=== PATIENT | female | born 1995 | race Caucasian/White ===

== ENCOUNTER 2019-09-30 22:52 | Emergency (ER) | payer OTHER, MEDICAID ==
[~2019-09-30] VITALS: Ht 154.9 cm; Wt 65.8 kg
[2019-09-30 23:39] LABS: URINE BILIRUBIN NEGATIVE (Negative); URINE BLOOD NEGATIVE (Negative); URINE CLARITY CLEAR; URINE COLOR YELLOW; URINE GLUCOSE-RANDOM NEGATIVE (Negative); URINE KETONES NEGATIVE (Negative); URINE LEUKOCYTES-REFLEX 1+ (Negative); URINE NITRITE-REFLEX NEGATIVE (Negative); URINE PROTEIN 1+ (Negative); URINE SPECIFIC GRAVITY >= 1.030 (1.005-1.030); URINE UROBILINOGEN 0.2 E.U./dl (0.2-1.0)
[2019-10-01 00:04] LABS: CASTS None Seen /LPF (None Seen); MUCUS 0-3 Light strn/LPF (None Seen); SQUAMOUS >10 Many /LPF (0-3); URINE WBC-REFLEX >25 Many /HPF (0-5)
[2019-10-01 00:05] LABS: CRYSTALS None Seen /LPF (None Seen); URINE RBC 3-10 Few /HPF (0-2)
[2019-10-01] MEDS ORDERED: MACROBID 100 M100 M1 PO (00:41)
[2019-10-01 00:48] VITALS: BP 126/78
== END 2019-10-01 00:48 | disposition home or self-care (01) ==
LOC: M.ERS 22:52
PROVIDERS: Family Medicine
DX: N39.0 Urinary tract infection, site not specified (principal)

== ENCOUNTER 2020-01-14 21:41 | Emergency (ER) | payer OTHER, MEDICAID ==
[~2020-01-14] VITALS: Ht 157.5 cm; Wt 66.7 kg
[~2020-01-14 21:41] MED LIST: MACROBID 100 M100 M1 PO
[2020-01-14 22:23] LABS: ABSOLUTE EOSINOPHILS 0.2 thou/uL (0.0-0.7); ABSOLUTE LYMPHOCYTES 2.5 thou/uL (0.8-5.3); ABSOLUTE MONOCYTES 0.5 thou/uL (0.0-1.2); ABSOLUTE NEUTROPHILS 1.7 thou/uL (1.6-8.1); BASOPHILS 0.6 %; EOSINOPHILS 3.3 %; HEMATOCRIT 37.5 % (37.0-47.0); HEMOGLOBIN 12.6 gm/dL (12.0-15.0); LYMPHOCYTES 51.2 %; MCH 30.7 pg (26.0-34.0); MCHC 33.6 g/dL (28.0-37.0); MCV 91.4 fL (80.0-100.0); MONOCYTES 9.5 %; MPV 9.1 fl. (7.2-11.1); NUCLEATED RBCS 0 /100WBC; PLATELET COUNT* 218 thou/uL (150-400); POLYS 35.4 %; WBC 4.8 thou/uL (4.0-11.0)
[2020-01-14 22:31] LABS: CALCIUM 8.7 mg/dL (8.5-10.1); CREATININE 0.8 mg/dL (0.6-1.3); POTASSIUM 3.7 mmol/L (3.5-5.1)
[2020-01-14 22:41] LABS: ALBUMIN 3.9 g/dL (3.4-5.0); MAGNESIUM 1.9 mg/dL (1.8-2.4); TOTAL BILIRUBIN 0.3 mg/dL (<0.1-1.0); TOTAL PROTEIN 8.3 g/dL (6.4-8.2)
[2020-01-14] MEDS ORDERED: IBUPROFEN 800800 M1 PO (23:23)
[2020-01-14] MEDS ORDERED: FLEXERIL PO (23:23)
[2020-01-14 23:40] VITALS: BP 116/67
--- NOTE | 2020-01-15 08:48 | EKG ---
[place] [address] ELECTROCARDIOGRAM REPORT Name: JASON THURSTONMADISON Elisabeth Room: [facility]#: [id number] Admission: 01/14/20 Attend Phys: Discharge: 01/14/20 Date of : 89 Date of Service: 01/14/202145 Report #: [id number] THIS REPORT FOR: //name// [facility] ED Test Date: 2020-01-14 Test Time: 21:46:22 Pat Name: TIFFANIE THURSTON Department: Room: Gender: [employer]: ANISHA : 1995 Requested By: Kev Hutchison Order Number: [id number] MD: Guilherme Fuentes Measurements Intervals [place] Rate: 74 P: 48 SD: 124 QRS: 64 QRSD: 73 T: 11 QT: 352 QTc: 391 Interpretive Statements Sinus rhythm No previous ECG available for comparison Electronically Signed On 01-15-2020 8:46:19 CDT by Guilherme Fuentes [email or web address] <ELECTRONICALLY SIGNED> By: Guilherme Fuentes MD, [facility] 01/15/20 [id number] Guilherme Fuentes MD, FACC /EPI
== END 2020-01-14 23:41 | disposition home or self-care (01) ==
LOC: M.ERS 21:41
PROVIDERS: Emergency Medicine Emergency Medical Services
DX: R07.89 Other chest pain (principal)

== ENCOUNTER 2021-05-11 21:49 | Emergency (ER) | payer OTHER, MEDICAID ==
[~2021-05-11] VITALS: Ht 154.9 cm; Wt 68.0 kg
[~2021-05-11 21:49] MED LIST changes: +FLEXERIL PO; +IBUPROFEN 800800 M1 PO
[2021-05-11 21:54] VITALS: BP 125/54
== END 2021-05-11 22:07 | disposition home or self-care (01) ==
LOC: M.ERS 21:49
DX: M26.602 Left temporomandibular joint disorder, unspecified (principal)

== ENCOUNTER 2021-05-18 07:27 | Emergency (ER) | payer OTHER, MEDICAID ==
[~2021-05-18] VITALS: Ht 154.9 cm; Wt 68.0 kg
[2021-05-18 08:11] LABS: HEMATOCRIT 32.3 % (37.0-47.0); HEMOGLOBIN 10.6 gm/dL (12.0-15.0); MCH 27.7 pg (26.0-34.0); MPV 8.7 fl. (7.2-11.1); NUCLEATED RBCS 0 /100WBC; PLATELET COUNT* 203 thou/uL (150-400); RBC 3.84 mil/uL (4.20-5.00); RDW-CV 14.6 % (10.5-14.5)
[2021-05-18 08:38] LABS: CALCIUM 8.8 mg/dL (8.5-10.1); CREATININE 0.7 mg/dL (0.6-1.3); POTASSIUM 3.8 mmol/L (3.5-5.1)
[2021-05-18 08:43] LABS: ALBUMIN 3.1 g/dL (3.4-5.0); TOTAL BILIRUBIN 0.2 mg/dL (<0.1-1.0); TOTAL PROTEIN 6.8 g/dL (6.4-8.2)
[2021-05-18 09:26] LABS: ABSOLUTE LYMPHOCYTES 1.3 thou/uL (0.8-5.3); ABSOLUTE MONOCYTES 0.3 thou/uL (0.0-1.2); ABSOLUTE NEUTROPHILS 1.4 thou/uL (1.6-8.1); HYPOCHROMASIA Occasional
[2021-05-18 10:00] VITALS: BP 102/55
== END 2021-05-18 10:00 | disposition home or self-care (01) ==
LOC: M.ERS 07:27
PROVIDERS: Emergency Medicine
DX: R51.9 Headache, unspecified (principal); R11.0 Nausea; R10.9 Unspecified abdominal pain